=== PATIENT | female | born 1970 | race Caucasian/White ===

== ENCOUNTER 2025-05-29 03:47 | Inpatient (IN) ==
[2025-05-29] MEDS ORDERED: IOPAMIDOL 100 ML BOTTLE IV ONE (03:48)
[2025-05-29 04:33] LABS: Basophils # (Auto) 0.07 K/mcL (0.00-0.30); Basophils % (Auto) 0.8 % (0.0-2.0); Eosinophils # (Auto) 0.20 K/mcL (0.00-0.70); Eosinophils % (Auto) 2.4 % (0.0-7.0); Hematocrit 38.3 % (34.1-44.9); Hemoglobin 12.7 g/dL (11.2-15.7); Lymphocytes # (Auto) 1.45 K/mcL (1.50-4.80); Lymphocytes % (Auto) 17.0 % (15.5-49.0); Mean Corpuscular HGB Conc 33.2 g/dL (31.0-36.0); Monocytes # (Auto) 0.66 K/mcL (0.10-0.90); Monocytes % (Auto) 7.8 % (1.0-12.0); Neutrophils % (Auto) 71.8 % (38.0-78.0); Platelet Count 596 K/mcL (140-440); RBC 4.38 M/mcL (3.59-5.38); WBC 8.5 K/mcL (4.5-11.0)
[2025-05-29 04:50] LABS: ALT/SGPT 36 U/L (<40); AST/SGOT 26 U/L (<32); Albumin 3.7 gm/dL (3.2-5.2); Albumin/Globulin Ratio 1.1 (1.0-2.3); Alkaline Phosphatase 100 U/L (39-117); Anion Gap 12.0 (8.0-16.0); Bilirubin,Total 0.5 mg/dL (0.1-1.0); Blood Urea Nitrogen 10 mg/dL (6-20); Calcium 8.5 mg/dL (8.6-10.4); Carbon Dioxide 25 mmol/L (22-30); Chloride 102 mmol/L (96-108); Globulin 3.4 gm/dL (2.2-3.7); Glucose 115 mg/dL (70-105); Potassium 3.4 mmol/L (3.3-5.1); Sodium 139 mmol/L (133-145)
[2025-05-29 05:13] LABS: Partial Thromboplastin Time 27.4 sec (20.0-37.0)
[2025-05-29 05:14] LABS: INR 1.0 (0.9-1.1); Prothrombin Time 14.3 sec (11.9-14.5)
[2025-05-29] MEDS: CLOPIDOGREL 300 MG TABLET PO ONE (06:51)
[2025-05-29] MEDS: ASPIRIN 81 MG TAB.CHEW CHEWED ONE (06:53)
[2025-05-29 08:08] LABS: Barbiturate Screen,Urine None detected; Benzodiazepines Screen,Urine None detected; Fentanyl, Urine Screen None Detected; Opiate Screen,Urine None detected; Oxycodone, Urine Screen None detected; Phencyclidine Screen,Urine None detected
[2025-05-29 08:15] LABS: Bilirubin,Urine Negative (Negative); Color,Urine YELLOW; Glucose,Urine (UA) Negative (Negative); Ketones,Urine Negative (Negative); Leukocyte Esterase,Urine Negative /uL (Negative); PH,Urine 7.0 (5.0-9.0); Protein,Urine Negative (Negative); Specific Gravity,Urine 1.048 (1.000-1.035); Urobilinogen,Urine 4.0 mg/dL
[2025-05-29] MEDS ORDERED: IPRATROPIUM/ALBUTEROL 3 ML AMPUL.NEB NEB PRN (10:09)
[2025-05-29] MEDS ORDERED: hydrALAZINE 20 MG/ML VIAL IV PRN (10:09)
[2025-05-29] MEDS: ATORVASTATIN 40 MG TABLET PO SCH (11:17)
[2025-05-29] MEDS: CLOPIDOGREL 75 MG TABLET PO SCH (11:17)
[2025-05-29] MEDS: DOCUSATE SODIUM 100 MG CAPSULE PO SCH (11:17)
[2025-05-29] MEDS: ASPIRIN 81 MG TAB.CHEW CHEWED SCH (11:17)
[2025-05-29] MEDS: ONDANSETRON 4 MG/2 ML VIAL IV PRN (11:17)
[2025-05-29] MEDS: 0.9 % SODIUM CHLORIDE 10 ML SYRINGE IV SCH (13:24)
[2025-05-29] MEDS: KETOROLAC 30 MG/ML VIAL IV PRN (14:52)
[2025-05-29] MEDS: SENNOSIDES 1 TABLET PO SCH (20:48)
[2025-05-30 08:27] LABS: HDL Cholesterol 39 mg/dL (>40); LDL Cholesterol,Calculated 82 mg/dL (<100); Triglycerides 86 mg/dL (<150)
[2025-05-30 08:34] LABS: Estimated Average Glucose(eAG) 105 mg/dL; Hemoglobin A1C 5.3 % Hgb (4.0-6.0)
[2025-05-30] MEDS ORDERED: NITROGLYCERIN 0.4 MG TAB.SUBL SL PRN (12:41)
[2025-05-30] MEDS: NITROGLYCERIN 5 MG (0.2 MG/HR) PATCH TOPICAL SCH (14:32)
[2025-05-30] MEDS: ACETAMINOPHEN 325 MG TABLET PO PRN (14:39)
[2025-05-30] MEDS ORDERED: AMOXICILLIN 875 MG PO SCH (21:00)
[2025-05-31] MEDS: LIDOCAINE 4% TOP PATCH TOPICAL SCH (09:28)
[2025-05-31] MEDS ORDERED: hydrALAZINE 20 MG/ML VIAL IV PRN (10:31)
[2025-06-01] MEDS: LISINOPRIL 20 MG TABLET PO SCH (09:03)
[2025-06-01] MEDS: BACLOFEN 10 MG TABLET PO PRN (20:23)
[2025-06-02 11:30] VITALS: TEMP 98.3; O2SAT 94
== END 2025-06-02 12:40 | DRG 65 ==
LOC: ED 03:47 → MEDSUR 10:00
PROVIDERS: ADMIT Internal Medicine; ATTEND Internal Medicine